=== PATIENT | female | born 1970 | race Caucasian/White ===

== ENCOUNTER 2020-06-25 13:06 | Observation (INO) | payer SELFPAY ==
--- NOTE | 2020-06-25 14:19 | RAD REPORT ---
EXAM DESCRIPTION: RAD - Chest Single View - 06/25/2020 2:11 pm CLINICAL HISTORY: COUGH Chest pain. COMPARISON: No comparisons FINDINGS: Portable technique limits examination quality. Moderate opacity in the right lower lobe medial right upper lobe is most compatible with pneumonia. T he left lung appears clear. The heart is normal in size. No displaced fractures. IMPRESSION: Moderate right-sided pneumonia.
[2020-06-25] MEDS ORDERED: ONDANSETRON 4 MG/2 ML VIAL ONE ×2 (14:24→15:44)
[2020-06-25] MEDS ORDERED: NA CHLORIDE 0.9% 1,000 ML ONE ×2 (14:25→15:44)
[2020-06-25] MEDS ORDERED: FAMOTIDINE 20 MG/2 ML VIAL IV ONE (14:25)
[2020-06-25] MEDS ORDERED: KETOROLAC 30 MG/ML INJ ONE (14:25)
[2020-06-25 15:06] LABS: Absolute Lymphocytes (CBC) 0.8 K/uL (0.7-4.9); Basophils % 0.3 % (0-1.3); Hematocrit 37.4 % (36.0-45.0); Lymphocytes % 15.8 % (15.3-44.8); MPV 9.8 fL (7.6-11.3); RBC Red Blood Cell Count 4.37 M/uL (3.86-4.86)
[2020-06-25] MEDS ORDERED: CEFTRIAXONE/SWI 1gm 1 GM/10 ML SYR ONE (15:18)
[2020-06-25 15:23] LABS: ALT/SGPT 70 U/L (12-78); AST/SGOT 65 U/L (15-37); Albumin 2.7 g/dL (3.4-5.0); Alkaline Phosphatase 59 U/L (45-117); BUN Blood Urea Nitrogen 14 mg/dL (7-18); Bicarbonate 27 mmol/L (21-32); Bilirubin Direct < 0.1 mg/dL (0-0.2); Bilirubin Total 0.2 mg/dL (0.2-1.0); Glucose Level 96 mg/dL (74-106); Lipase 187 U/L (73-393); Potassium 3.9 mmol/L (3.5-5.1); Sodium Level 142 mmol/L (136-145)
[2020-06-25 15:24] LABS: Blood Morphology Comment NOT SEEN (NOT SEEN); Platelet Estimate DECR; White Blood Cell Scan OK (OK)
[2020-06-25 15:56] LABS: SARS-COV-2 RT PCR POSITIVE (NEGATIVE)
[2020-06-25] MEDS ORDERED: AZITHROMYCIN IV 500 MG in NA CHLORIDE 0.9% 250 ML IVPB ONE (16:00)
[2020-06-25] MEDS ORDERED: PROMETHAZINE INJ 25 MG/ML AMP ONE (16:49)
--- NOTE | 2020-06-25 18:31 | EDPHYS ---
Physician Documentation [facility] Name: Aleida Smalls Age: 49 yrs Sex: Female : 1970 Arrival Date: 06/25/2020 Time: 13:09 Bed 26 Private MD: ED Physician Guillaume Saleem HPI: 06/25 13:45 This 49 yrs old Female presents to ER via Wheelchair with complaints of cp Fever, Weakness, Body Aches. 13:45 The patient reports fever, that was measured at 102 degrees Fahrenheit. Onset: The cp symptoms/episode began/occurred 4 day(s) ago. Associated signs and symptoms: Pertinent positives: cough, diarrhea, vomiting, body aches. Severity of symptoms: in the emergency department the symptoms are unchanged despite home interventions. reports he was diagnosed with COVID-19 approximately 2 weeks ago. Patient tested negative twice previously. Historical: - Allergies: 13:21 No Known Allergies; sv - PMHx: 13:21 None; sv - Immunization history:: Adult Immunizations up to date. - Social history:: Smoking status: Patient reports the use of cigarette tobacco products, smokes one pack cigarettes per day. ROS: 13:47 Eyes: Negative for injury, pain, redness, and discharge. cp 13:47 Constitutional: Positive for body aches, poor PO intake, Negative for fever. 13:47 ENT: Negative for ear pain, sore throat, difficulty swallowing, difficulty handling secretions. 13:47 Cardiovascular: Negative for chest pain. 13:47 Respiratory: Positive for cough, "sounds productive", Negative for shortness of breath, wheezing. 13:47 Abdomen/GI: Positive for nausea, vomiting, and diarrhea, Negative for abdominal pain, constipation. 13:47 Back: Positive for pain at rest. 13:47 Neuro: Positive for headache, Negative for altered mental status. 13:47 All other systems are negative. Exam: 13:49 Head/Face: Normocephalic, atraumatic. cp 13:49 Constitutional: The patient appears in no acute distress, alert, awake, non-diaphoretic, non-toxic, well developed, well nourished. 13:49 Eyes: Periorbital structures: appear normal, Conjunctiva: normal, no exudate, no injection, Sclera: no appreciated abnormality, Lids and lashes: appear normal, bilaterally. 13:49 ENT: External ear(s): are unremarkable, Nose: is normal, Mouth: Lips: moist, Oral mucosa: moist, Posterior pharynx: Airway: no evidence of obstruction, patent. 13:49 Neck: ROM/movement: is normal, is supple, no meningismus, no nuchal rigidity. 13:49 Chest/axilla: Inspection: normal, Palpation: is normal, no crepitus, no tenderness. 13:49 Cardiovascular: Rate: normal, Rhythm: regular. 13:49 Respiratory: the patient does not display signs of respiratory distress, Respirations: normal, no use of accessory muscles, no retractions, labored breathing, is not present, Breath sounds: are clear throughout, no decreased breath sounds, no stridor, no wheezing. 13:49 Abdomen/GI: Inspection: abdomen appears normal, Bowel sounds: active, all quadrants, Palpation: abdomen is soft and non-tender, in all quadrants. 13:49 Back: ROM is normal, CVA tenderness, is absent. 13:49 Skin: no rash present. 13:49 Neuro: Orientation: to person, place \\T\\ time. Mentation: is normal, Motor: moves all fours, strength is normal. Vital Signs: 13:21 BP 91 / 52; Pulse 75; Resp 18; Temp 98.5(O); Pulse Ox 99% ; Weight 90.72 kg; Height 5 sv ft. 7 in. (170.18 cm); Pain 6/10; 15:15 Temp 99.6(O); ll1 15:22 BP 98 / 53; Pulse 69; Resp 17; Pulse Ox 99% on R/A; ll1 17:05 BP 101 / 59; Pulse 65; Resp 18; Temp 99.1; Pulse Ox 99% on R/A; ll1 19:45 BP 129 / 71; Pulse 82; Resp 18; Temp 102.6(O); Pulse Ox 97% on R/A; wh 13:21 Body Mass Index 31.32 (90.72 kg, 170.18 cm) sv MDM: 13:31 Patient medically screened. epi 14:00 Differential diagnosis: bronchitis, pneumonia UTI, meningitis, sepsis. cp 16:20 Data reviewed: vital signs, nurses notes, lab test result(s), radiologic studies, plain cp films. 18:10 ED course: VSS. Patient continues to reports continued nausea and vomiting when cp attempting to consume fluids. Patient and concerned about return of fever, general weakness getting worse if discharged. Will consult hospitalist services for admission for continued nausea/vomiting. 18:25 Physician consultation: Ga RIDDLE was contacted at 18:25, regarding admission, cp patient's condition. 06/25 13:43 Order name: Influenza Screen (a \\T\\ B) 06/25 13:43 Order name: COVID-19 : Document "Date of Symptom Onset" if Symptomatic. 06/25 13:43 Order name: Urine Microscopic Only 06/25 13:43 Order name: Basic Metabolic Panel; Complete Time: 15:24 06/25 15:49 Interpretation: Normal except: CL 111; CRE 0.52; CA 7.3. 06/25 13:43 Order name: CBC with Diff; Complete Time: 15:49 06/25 15:24 Interpretation: Normal except: PLT 94; VITALIY% 79.7. 06/25 13:43 Order name: Hepatic Function; Complete Time: 15:24 06/25 16:10 Interpretation: Normal except: AST 65; TP 6.0; ALB 2.7; A/G 0.8. 06/25 13:43 Order name: Lipase; Complete Time: 15:24 06/25 13:43 Order name: Lactate; Complete Time: 15:24 06/25 13:43 Order name: Procalcitonin; Complete Time: 16:03 06/25 13:43 Order name: Blood Culture* 06/25 13:43 Order name: Urine Microscopic Only EDGA 06/25 15:25 Order name: CBC Smear Scan; Complete Time: 15:49 EDGA 06/25 15:56 Order name: COVID-19/FLU A+B; Complete Time: 16:03 EDGA 06/25 16:03 Interpretation: Abnormal: SARSCOV2 RT PCR POSITIVE. 06/25 18:07 Order name: CRP; Complete Time: 21:55 cp 06/25 18:07 Order name: Ferritin; Complete Time: 21:55 cp 06/25 19:23 Order name: PT-INR; Complete Time: 21:55 cp 06/25 19:23 Order name: Ptt, Activated; Complete Time: 21:55 cp 06/26 04:15 Order name: Urinalysis EDMS 06/26 05:09 Order name: CBC with Automated Diff EDMS 06/26 05:23 Order name: Comprehensive Metabolic Panel EDMS 06/26 05:23 Order name: Phosphorus EDMS 06/26 05:23 Order name: Magnesium EDMS 06/27 04:55 Order name: CBC with Automated Diff EDMS 06/27 05:06 Order name: Lactate EDMS 06/27 07:04 Order name: Comprehensive Metabolic Panel EDMS 06/27 07:04 Order name: Phosphorus EDMS 06/27 07:04 Order name: C-Reactive Protein EDMS 06/27 07:04 Order name: Magnesium EDMS 06/25 13:43 Order name: Urine Dipstick-Ancillary (obtain specimen); Complete Time: 03:25 cp 06/25 13:43 Order name: Urine Test (obtain specimen); Complete Time: 03:25 cp 06/25 13:43 Order name: IV Saline Lock; Complete Time: 14:27 cp 06/25 13:43 Order name: Labs collected and sent; Complete Time: 14:27 cp 06/25 14:08 Order name: Chest Single View; Complete Time: 14:45 EDMS 06/25 14:45 Interpretation: Report reviewed. cp 06/25 14:25 Order name: Labs - recollect needed: recollect purple and green tops; Complete Time: eb 14:47 06/25 16:11 Order name: PO challenge; Complete Time: 16:57 cp 06/25 20:48 Order name: CT Chest, Abdomen, Pelvis - W/Contrast ej 06/27 07:04 Order name: Ferritin EDMS 06/27 08:18 Order name: RAD EDMS Administered Medications: 14:25 Drug: Zofran (Ondansetron) 4 mg Route: IVP; Site: right antecubital; ll1 15:05 Follow up: Response: No adverse reaction; RASS: Alert and Calm (0) ll1 14:25 Drug: NS 0.9% 1000 ml Route: IV; Rate: 1 bolus; Site: right antecubital; ll1 15:06 Follow up: Response: No adverse reaction; RASS: Alert and Calm (0); IV Status: ll1 Completed infusion; IV Intake: 1000ml 14:26 Drug: Pepcid (famotidine) 20 mg Route: IVP; Site: right antecubital; 1 15:06 Follow up: Response: No adverse reaction; RASS: Alert and Calm (0) 1 14:26 Drug: Ketorolac 15 mg Route: IVP; Site: right antecubital; 1 15:05 Follow up: Response: No adverse reaction; RASS: Alert and Calm (0) 1 15:04 Drug: Rocephin (cefTRIAXone) 1 grams Route: IV; Rate: calculated rate; Site: right ll1 antecubital; 15:06 Follow up: Response: No adverse reaction; RASS: Alert and Calm (0); IV Status: ll1 Completed infusion; IV Intake: 10ml 15:25 Drug: Zithromax (azithromycin) 500 mg Route: IVPB; Infused Over: 1 hrs; Site: right ll1 antecubital; 16:25 Follow up: Response: No adverse reaction; IV Status: Completed infusion; IV Intake: ll1 250ml 15:30 Drug: Zofran (Ondansetron) 4 mg Route: IVP; Site: right antecubital; 1 19:00 Follow up: Response: No adverse reaction; RASS: Alert and Calm (0) 1 15:31 Drug: NS 0.9% 1000 ml Route: IV; Rate: 1 bolus; Site: right antecubital; 1 16:30 Follow up: Response: No adverse reaction; RASS: Alert and Calm (0); IV Status: ll1 Completed infusion; IV Intake: 1000ml 16:57 Drug: Phenergan (promethazine) 25 mg Route: IVP; Site: right antecubital; 1 18:59 Follow up: Response: No adverse reaction; RASS: Alert and Calm (0) 1 20:05 Drug: Tylenol 650 mg Route: PO; wh 22:17 Follow up: Response: Temperature is decreased 06/26 00:08 Drug: Tylenol 650 mg Route: PO; 03:24 Follow up: Response: No adverse reaction; Temperature is decreased Disposition: 06/28 09:56 Co-signature as Attending Physician, Guillaume Saleem MD I agree with the assessment and epi plan of care. Disposition: 06/25/20 18:31 Hospitalization ordered by Tony Portillo for Observation. Preliminary diagnosis are Nausea and vomiting - intractable, Pneumonia due to other infectious organisms, not elsewhere classified. - Bed requested for [facility] ER HOLD. - Status is Observation. ss - Condition is Stable. - Problem is new. - Symptoms have improved. Signatures: Dispatcher [employer] EDGA Sarai Pedroza, RN Moriah Mcneal RN Guillaume Cabral MD MD cha Smirch, Shelby, RN RN ss Page, Corey, PA PA cp Raheem Pike RN RN wh Botello, Elizabeth eb Lewis, Lynsay, RN RN ll1 Corrections: (The following items were deleted from the chart) 06/25 14: 13:44 Chest Pa And Lat (2 Views)+RAD.RAD.BRZ ordered. EDMS EDMS 14:08 14:01 Chest Single View+RAD.RAD.BRZ ordered. EDMS EDMS 14:53 13:43 Influenza Screen (A ordered. EDMS EDMS 14:54 13:43 CORONAVIRUS ordered. EDMS EDMS 15:49 15:24 Normal except: CL 111; CRE 0.52. cp cp 20:11 18:31 Hospitalization Ordered by Tony Portillo MD for Observation. Preliminary dw diagnosis is Nausea and vomiting - intractable; Pneumonia due to other infectious organisms, not elsewhere classified. Bed requested for Telemetry/MedSurg (observation). Status is Observation. Condition is Stable. Problem is new. Symptoms have improved. cp 06/27 11:15 06/25 20:11 06/25/2020 18:31 Hospitalization Ordered by Tony Portillo MD for ss Observation. Preliminary diagnosis is Nausea and vomiting - intractable; Pneumonia due to other infectious organisms, not elsewhere classified. Bed requested for [facility] ER HOLD. Status is Observation. Condition is Stable. Problem is new. Symptoms have improved. dw
--- NOTE | 2020-06-25 18:31 | ER ---
Nurse's Notes [facility] Name: Aleida Smalls Age: 49 yrs Sex: Female : 1970 Arrival Date: 06/25/2020 Time: 13:09 Bed 26 Private MD: Diagnosis: Nausea and vomiting-intractable;Pneumonia due to other infectious organisms, not elsewhere classified Presentation: 06/25 13:19 Chief complaint: Patient states: fever, body aches, headache, n/v, lightheaded, sv generalized weakness, diarrhea since Sunday. Coronavirus screen: Client denies travel out of the [place] in the last 14 days. Client presents with at least one sign or symptom that may indicate coronavirus-19. Standard/surgical mask placed on the client. Provider contacted for isolation considerations. Ebola Screen: No symptoms or risks identified at this time. Risk Assessment: Do you want to hurt yourself or someone else? Patient reports no desire to harm self or others. Onset of symptoms was June 20, 2020. 13:19 Method Of Arrival: Wheelchair sv 13:19 Acuity: PIETER 2 sv 13:22 Initial Sepsis Screen: Does the patient meet any 2 criteria? No. Patient's initial sv sepsis screen is negative. Does the patient have a suspected source of infection? No. Patient's initial sepsis screen is negative. Historical: - Allergies: 13:21 No Known Allergies; sv - PMHx: 13:21 None; sv - Immunization history:: Adult Immunizations up to date. - Social history:: Smoking status: Patient reports the use of cigarette tobacco products, smokes one pack cigarettes per day. Screenin:09 Abuse screen: Denies threats or abuse. Nutritional screening: No deficits noted. ll1 Tuberculosis screening: No symptoms or risk factors identified. 19:03 Fall Risk IV access (20 points). Gait- Weak (10 pts.). Total Zamora Fall Scale indicates ll1 Low Risk Score (25-44 pts). Assessment: 13:35 General: Appears ill, Behavior is calm, cooperative, appropriate for age. Pain: ll1 Complains of pain in body Quality of pain is described as aching, Aggravated by increased activity. Neuro: Level of Consciousness is awake, alert, Oriented to person, place, time, situation, Appropriate for age Team Leader Surgery are equal bilaterally Moves all extremities. Full function Gait is steady, Speech is normal, Facial symmetry appears normal, Reports headache weakness. Cardiovascular: No deficits noted. Respiratory: Reports cough that is Airway is patent Trachea midline Respiratory effort is even, unlabored, Respiratory pattern is regular, symmetrical, Breath sounds are clear in left upper lobe and left lower lobe Breath sounds are diminished in right middle lobe and right lower lobe the patient has mild shortness of breath. GI: Abdomen is round Bowel sounds present X 4 quads. Abd is soft and non tender X 4 quads. Reports diarrhea, nausea, vomiting. Musculoskeletal: Circulation, motion, and sensation intact. Capillary refill < 3 seconds, Range of motion: intact in all extremities, Reports pain in body aches. 14:30 Reassessment: Patient and/or family updated on plan of care and expected duration. Pain ll1 level reassessed. Patient is alert, oriented x 3, equal unlabored respirations, skin warm/dry/pink. vomited once. 15:30 Reassessment: No changes from previously documented assessment. Patient and/or family ll1 updated on plan of care and expected duration. Pain level reassessed. 16:30 Reassessment: No changes from previously documented assessment. Patient and/or family ll1 updated on plan of care and expected duration. Pain level reassessed. Patient states feeling better. 17:30 Reassessment: No changes from previously documented assessment. Patient and/or family ll1 updated on plan of care and expected duration. Pain level reassessed. Patient states symptoms have not improved. 18:30 Reassessment: No changes from previously documented assessment. Patient and/or family ll1 updated on plan of care and expected duration. Pain level reassessed. 19:30 Reassessment: Patient appears in no apparent distress at this time. Patient and/or wh family updated on plan of care and expected duration. Pain level reassessed. Patient is alert, oriented x 3, equal unlabored respirations, skin warm/dry/pink. Vital Signs: 13:21 BP 91 / 52; Pulse 75; Resp 18; Temp 98.5(O); Pulse Ox 99% ; Weight 90.72 kg; Height 5 sv ft. 7 in. (170.18 cm); Pain 6/10; 15:15 Temp 99.6(O); ll1 15:22 BP 98 / 53; Pulse 69; Resp 17; Pulse Ox 99% on R/A; ll1 17:05 BP 101 / 59; Pulse 65; Resp 18; Temp 99.1; Pulse Ox 99% on R/A; ll1 19:45 BP 129 / 71; Pulse 82; Resp 18; Temp 102.6(O); Pulse Ox 97% on R/A; wh 13:21 Body Mass Index 31.32 (90.72 kg, 170.18 cm) sv ED Course: 13:09 Patient arrived in ED. ds1 13:19 Arm band placed on. sv 13:20 Triage completed. sv 13:24 Guillaume Sharif PA is PHCP. cp 13:24 Guillaume Saleem MD is Attending Physician. cp 13:29 Selma Garcia RN is Primary Nurse. ll1 13:30 Patient placed in an exam room, on a stretcher. ll1 14:12 Chest Single View In Process Unspecified. EDMS 14:27 COVID-19 : Document "Date of Symptom Onset" if Symptomatic. Sent. ll1 15:10 Patient has correct armband on for positive identification. Bed in low position. Call ll1 light in reach. Side rails up X 1. 18:30 Tony Portillo MD is Hospitalizing Provider. cp 19:15 Primary Nurse role handed off by Selma Garcia RN eb 20:17 No provider procedures requiring assistance completed. Patient admitted, IV remains in place. 21:44 CT Chest, Abdomen, Pelvis - W/Contrast In Process Unspecified. EDMS 22:16 Raheem Pike, SARBJIT is Primary Nurse. Administered Medications: 14:25 Drug: Zofran (Ondansetron) 4 mg Route: IVP; Site: right antecubital; ll1 15:05 Follow up: Response: No adverse reaction; RASS: Alert and Calm (0) ll1 14:25 Drug: NS 0.9% 1000 ml Route: IV; Rate: 1 bolus; Site: right antecubital; ll1 15:06 Follow up: Response: No adverse reaction; RASS: Alert and Calm (0); IV Status: ll1 Completed infusion; IV Intake: 1000ml 14:26 Drug: Pepcid (famotidine) 20 mg Route: IVP; Site: right antecubital; ll1 15:06 Follow up: Response: No adverse reaction; RASS: Alert and Calm (0) ll1 14:26 Drug: Ketorolac 15 mg Route: IVP; Site: right antecubital; ll1 15:05 Follow up: Response: No adverse reaction; RASS: Alert and Calm (0) ll1 15:04 Drug: Rocephin (cefTRIAXone) 1 grams Route: IV; Rate: calculated rate; Site: right ll1 antecubital; 15:06 Follow up: Response: No adverse reaction; RASS: Alert and Calm (0); IV Status: ll1 Completed infusion; IV Intake: 10ml 15:25 Drug: Zithromax (azithromycin) 500 mg Route: IVPB; Infused Over: 1 hrs; Site: right ll1 antecubital; 16:25 Follow up: Response: No adverse reaction; IV Status: Completed infusion; IV Intake: ll1 250ml 15:30 Drug: Zofran (Ondansetron) 4 mg Route: IVP; Site: right antecubital; 1 19:00 Follow up: Response: No adverse reaction; RASS: Alert and Calm (0) [facility] 15:31 Drug: NS 0.9% 1000 ml Route: IV; Rate: 1 bolus; Site: right antecubital; ll1 16:30 Follow up: Response: No adverse reaction; RASS: Alert and Calm (0); IV Status: ll1 Completed infusion; IV Intake: 1000ml 16:57 Drug: Phenergan (promethazine) 25 mg Route: IVP; Site: right antecubital; 1 18:59 Follow up: Response: No adverse reaction; RASS: Alert and Calm (0) 1 20:05 Drug: Tylenol 650 mg Route: PO; 22:17 Follow up: Response: Temperature is decreased 06/26 00:08 Drug: Tylenol 650 mg Route: PO; 03:24 Follow up: Response: No adverse reaction; Temperature is decreased Intake: 06/25 15:06 IV: 1000ml; Total: 1000ml. ll1 15:06 IV: 10ml; Total: 1010ml. ll1 16:25 IV: 250ml; Total: 1260ml. ll1 16:30 IV: 1000ml; Total: 2260ml. 1 Outcome: 18:31 Decision to Hospitalize by Provider. cp 20:17 Admitted to ER Hold. Please see [employer] for further documentation. 20:17 Condition: stable 20:17 Instructed on the need for admit. 06/27 11:15 Patient left the ED. Signatures: Dispatcher [employer] Sarai Lira, RN SARBJIT Yaritza Piña ds1 Annette Gooden RN RN ss Guillaume Sharif PA PA cp Habalo, Winsy, RN RN Clarita Newman Lynsay RN RN ll1 Corrections: (The following items were deleted from the chart) 06/25 13:22 13:19 Acuity: PIETER 3 [facility]
[2020-06-25 20:02] LABS: C-Reactive Protein 52.9 mg/L (<3.00); Ferritin 701.3 ng/mL (8-388)
[2020-06-25 20:06] LABS: Protime INR 1.1
[2020-06-25] MEDS ORDERED: ACETAMINOPHEN 325 MG TABLET ONE (20:18)
[2020-06-26] MEDS ORDERED: ACETAMINOPHEN 325 MG TABLET ONE (00:25)
--- NOTE | 2020-06-26 01:21 | P.HP ---
Certification for Inpatient Patient admitted to: Observation With expected LOS: <2 Midnights Patient will require the following post-hospital care: None Practitioner: I am a practitioner with admitting privileges, knowledge of patient current condition, hospital course, and medical plan of care. Services: Services provided to patient in accordance with Admission requirements found in Title 42 Section 412.3 of the Code of Federal Regulations Patient History Date of Service: 06/26/20 Reason for admission: pneumonia History of Present Illness: Ms. Smalls is a 49 yo F with tobacco use disorder (1ppd) here today for six days of malaise. She reports weakness, fatigue, cough, fever to 102.6, nausea, vomiting, diarrhea, and headache. She is unable to keep food down. She denies SOB, RUIZ, wheezing, hemoptysis, hematuria, bleeding in her gums. She is not hypoxic. At home she has been taking steroids, covid supplements, tylenol and motrin. Plt 94, AST 65. CXR shows moderate right-sided pneumonia. - Past Medical/Surgical History Has patient received pneumonia vaccine in the past: No Diabetic: No Past Medical History: Patient denies medical history -: hysterectomy -: tubal ligation Psychosocial/ Personal History: - Family History Father -: Diabetes Mother -: Diabetes - Social History Smoking Status: Current every day smoker Counseled patient to stop smoking for: less than 10 minutes Smoking therapy provided: Yes Patient receptive to therapy: No Alcohol use: Yes CD- Drugs: No Caffeine use: Yes Place of Residence: Home Review of Systems General: Fever, Chills, Sweats, Weakness, Malaise, As per HPI Eyes: Unremarkable ENT: Unremarkable Respiratory: Cough, As per HPI Cardiovascular: Unremarkable Gastrointestinal: Nausea, Vomiting, Diarrhea, As per HPI Genitourinary: Unremarkable Musculoskeletal: Unremarkable Integumentary: Unremarkable Neurological: Unremarkable Lymphatics: Unremarkable Physical Examination - Physical Exam General: Alert, In no apparent distress, Oriented x3, Cooperative HEENT: Atraumatic, Normocephalic, PERRLA, Mucous membr. moist/pink, EOMI, Sclerae nonicteric Neck: Supple, 2+ carotid pulse no bruit, JVD not distended, No Thyromegaly, No LAD Respiratory: Normal air movement, Rhonchi/gurgles Cardiovascular: No edema, Normal pulses, Regular rate/rhythm, Normal S1 S2, No gallops, No rubs, No murmurs Capillary refill: <2 Seconds Gastrointestinal: Normal bowel sounds, Soft and benign, Non-distended, No ascites, No tenderness, No masses, No rebound, No guarding Musculoskeletal: No clubbing, No swelling, No contractures, No erythema, No tenderness, No warmth Integumentary: No rashes, No breakdown, No significant lesion, No tenderness/swelling, No erythema, No warmth, No cyanosis Neurological: Normal speech, Normal strength at 5/5 x4 extr, Normal tone, Sensation intact, Cranial nerves 3-12 intact, Normal affect Lymphatics: No axilla or inguinal lymphadenopathy - Studies Laboratory Data (last 24 hrs) 06/25/20 19:33: PT 12.7 H, INR 1.10, APTT 31.1 06/25/20 14:52: WBC 4.90, Hgb 12.4, Hct 37.4, Plt Count 94 L* 06/25/20 14:52: Sodium 142, Potassium 3.9, BUN 14, Creatinine 0.52 L, Glucose 96, Total Bilirubin 0.2, AST 65 H, ALT 70, Alkaline Phosphatase 59, Lipase 187 Assessment and Plan - Problems (Diagnosis) (1) Tobacco use Current Visit: Yes Status: Chronic (2) SARS-CoV-2 positive Current Visit: Yes Status: Acute (3) Pneumonia Current Visit: Yes Status: Acute Qualifiers: Pneumonia type: due to unspecified organism Laterality: right Lung location: unspecified part of lung Qualified Code(s): J18.9 - Pneumonia, unspecified organism (4) Thrombocytopenia Current Visit: Yes Status: Acute (5) Nausea vomiting and diarrhea Current Visit: Yes Status: Acute - Plan continue with IVF antiemetics for nausea, pain medication as needed, tylenol for fever SCDs for DVT ppx, continue to monitor platelet count, avoid NSAIDs patient is not hypoxic, continue to monitor R lobe consolidation not consistent with COVID, patient's has been recently COVID+ will continue IV ceftriaxone and azithromycin, IV steroids, covid supplements Discharge Plan: Home Plan to discharge in: 24 Hours - Advance Directives Does patient have a Living Will: No Does patient have a Durable POA for Healthcare: No - Code Status/Comfort Care Code Status Assessed: Yes (full code ) Critical Care: No Time Spent Managing Pts Care (In Minutes): 70
[2020-06-26 01:39] VITALS: BMI 31.3
[2020-06-26] MEDS ORDERED: BENZONATATE 100 MG CAP PO PRN (01:40)
[2020-06-26] MEDS: NA CHLORIDE 0.9% 1,000 ML IV SCH ×3 (01:40→18:55)
[2020-06-26] MEDS ORDERED: MORPHINE 2 MG/ML SYR IV PRN (01:40)
[2020-06-26] MEDS ORDERED: NA CHLORIDE 0.9% 1,000 ML ONE ×2 (04:01→14:47)
[2020-06-26 04:08] LABS: Urine Appearance CLEAR (Clear); Urine Bilirubin NEGATIVE (Negataive); Urine Blood NEGATIVE (Negative); Urine Color YELLOW (Yellow); Urine Glucose NEGATIVE (Negative); Urine Protein NEGATIVE (Negative); Urine Specific Gravity >=1.030 (1.005-1.030); Urine Urobilinogen 0.2 mg/dL (0.2-1.0)
[2020-06-26 04:14] LABS: Urine Microscopic Reflex NO UMIC
[2020-06-26 05:02] LABS: Absolute Lymphocytes (CBC) 1.4 K/uL (0.7-4.9); Basophils % 0.3 % (0-1.3); Hematocrit 36.2 % (36.0-45.0); Lymphocytes % 24.7 % (15.3-44.8); MPV 9.8 fL (7.6-11.3); RBC Red Blood Cell Count 4.24 M/uL (3.86-4.86)
[2020-06-26 05:22] LABS: ALT/SGPT 92 U/L (12-78); AST/SGOT 91 U/L (15-37); Albumin 2.5 g/dL (3.4-5.0); Alkaline Phosphatase 54 U/L (45-117); BUN Blood Urea Nitrogen 7 mg/dL (7-18); Bicarbonate 25 mmol/L (21-32); Bilirubin Total 0.2 mg/dL (0.2-1.0); Glucose Level 104 mg/dL (74-106); Magnesium 1.7 mg/dL (1.8-2.4); Phosphorus 1.8 mg/dL (2.5-4.9); Potassium 3.6 mmol/L (3.5-5.1); Protein, Total 5.7 g/dL (6.4-8.2); Sodium Level 140 mmol/L (136-145)
[2020-06-26] MEDS: ONDANSETRON 4 MG/2 ML VIAL IV PRN ×2 (05:28→13:51)
[2020-06-26] MEDS ORDERED: MAGNESIUM SULFATE 1 gm IVPB 1 GM/100 ML BAG IV ONE ×2 (05:31→06:02)
[2020-06-26] MEDS ORDERED: ONDANSETRON 4 MG/2 ML VIAL ONE ×2 (05:37→14:08)
[2020-06-26] MEDS ORDERED: METOCLOPRAMIDE 10 MG/2mL INJ ONE ×2 (07:36→14:42)
[2020-06-26] MEDS: METOCLOPRAMIDE 10 MG/2mL INJ IV PRN ×2 (07:43→14:23)
[2020-06-26] MEDS ORDERED: POTASSIUM CL SA 10 MEQ TAB PO ONE ×2 (09:00→10:25)
[2020-06-26] MEDS: NICOTINE 14 MG/PAT TD SCH ×2 (09:00→10:08)
[2020-06-26] MEDS: VITAMIN D 1000 UNIT TAB PO SCH (10:07)
[2020-06-26] MEDS: ASCORBIC ACID 500 MG TABLET PO SCH ×4 (10:07→20:20)
[2020-06-26] MEDS: ZINC SULFATE 220 MG CAP PO SCH (10:07)
[2020-06-26] MEDS: METHYLPREDNISOLONE 125 MG INJ IV SCH ×2 (10:07→20:20)
[2020-06-26] MEDS: THIAMINE HCL 100 MG TABLET PO SCH (10:08)
[2020-06-26] MEDS ORDERED: ZINC SULFATE 220 MG CAP ONE (10:24)
[2020-06-26] MEDS ORDERED: METHYLPREDNISOLONE 125 MG INJ ONE (10:24)
[2020-06-26] MEDS ORDERED: THIAMINE HCL 100 MG TABLET ONE (10:25)
[2020-06-26] MEDS ORDERED: ASCORBIC ACID 500 MG TABLET ONE ×4 (10:25→20:02)
[2020-06-26] MEDS ORDERED: VITAMIN D 1000 UNIT TAB ONE (10:25)
[2020-06-26] MEDS: ACETAMINOPHEN 500 MG TAB PO PRN ×3 (12:02→23:25)
[2020-06-26] MEDS ORDERED: ACETAMINOPHEN 500 MG TAB ONE ×3 (12:19→23:43)
[2020-06-26] MEDS ORDERED: LOPERAMIDE HCL 2 MG CAPSULE PO STA (13:41)
[2020-06-26] MEDS ORDERED: LOPERAMIDE HCL 2 MG CAPSULE ONE ×2 (14:09→17:43)
--- NOTE | 2020-06-26 14:55 | RAD REPORT ---
EXAM DESCRIPTION: Chest Abdomen Pelvis W Cont RadLex: CT CHEST ABDOMEN PELVIS WITH IV CONTRAST CLINICAL HISTORY: Intractable vomiting. COMPARISON: None. TECHNIQUE: CT of the chest, abdomen, and pelvis was performed following intravenous administration o f iodinated contrast. Oral contrast was not administered. Axial, coronal, and sagittal reconstruction s were created and sent to PACS. This exam was performed according to our departmental dose-optimization program, which includes autom ated exposure control, adjustment of the mA and/or kV according to patient size and/or use of iterati ve reconstruction technique. FINDINGS: Lungs and pleura: Large regions of consolidation in the central aspect of the right upper lobe and right middle lobe, and peripheral aspect of the right lower lobe. Smaller consolidations in the right upper lobe and lateral lingula. No pleural effusion. No pneumothorax. Mediastinum and neck: No mediastinal lymphadenopathy identified by CT size criteria. Unremarkable janay earance of the thyroid gland. Cardiac: No cardiomegaly or pericardial effusion. No thoracic aortic aneurysm or dissection. Hepatobiliary: No concerning hepatic lesion identified. Mild hepatomegaly, measuring 19.9 cm in lengt h. Tiny faint hypodensity in the superior left hepatic lobe, possibly a cyst. The hepatic and portal veins are patent. The gallbladder is unremarkable. No biliary ductal dilatation. Pancreas: Unremarkable. Spleen: Unremarkable. Gastrointestinal: No evidence of bowel obstruction or perienteric inflammation. The appendix is karthikeyan l. Moderate left colonic diverticulosis. Small amount of material in the colon. Adrenals: No abnormality identified in either adrenal gland. Renal: No concerning parenchymal abnormality in either kidney. No hydronephrosis or urolithiasis. Bladder/Reproductive: Poor evaluation of the underdistended urinary bladder. Hysterectomy. Vascular/Lymphatics: No lymphadenopathy identified by CT size criteria. Abdominal aorta is normal in caliber. Musculoskeletal: No concerning osseous lesion identified. Fluid / peritoneum: No significant free fluid. No free intraperitoneal air identified. IMPRESSION 1. Multifocal large regions of pulmonary consolidation, concerning for multifocal pneum onia. 2. No acute abnormality in the abdomen or pelvis. 3. Mild hepatomegaly. 4. Moderate left colonic diverticulosis. Electronically signed by: Erica Aleman MD 06/25/2020 9:56 PM CDT Due to temporary technical issues with the PACS/Fluency reporting system, reports are being signed by the in house radiologists without review as a courtesy to insure prompt reporting. The interpreting radiologist is fully responsible for the content of the report.
[2020-06-26] MEDS ORDERED: CEFTRIAXONE/SWI 1gm 1 GM/10 ML SYR IV SCH (16:00)
[2020-06-26] MEDS ORDERED: CEFTRIAXONE 1 GM/NS 50 ML 1 GM/50 ML BAG IV SCH (16:00)
[2020-06-26] MEDS ORDERED: CEFTRIAXONE/SWI 1gm 1 GM/10 ML SYR ONE (16:06)
[2020-06-26] MEDS: AZITHROMYCIN IV 500 MG in NA CHLORIDE 0.9% 250 ML IVPB SCH (16:13)
[2020-06-26] MEDS: LOPERAMIDE HCL 2 MG CAPSULE PO PRN (17:23)
[2020-06-26] MEDS ORDERED: METHYLPREDNISOLONE 40 MG INJ ONE (20:02)
[2020-06-26 20:31] VITALS: O2SAT 95
[2020-06-27] MEDS: NA CHLORIDE 0.9% 1,000 ML IV SCH (01:05)
[2020-06-27] MEDS ORDERED: NA CHLORIDE 0.9% 1,000 ML ONE (01:24)
[2020-06-27 04:36] LABS: Absolute Lymphocytes (CBC) 1.1 K/uL (0.7-4.9); Basophils % 0.5 % (0-1.3); Hematocrit 37.1 % (36.0-45.0); Lymphocytes % 35.3 % (15.3-44.8); MPV 9.8 fL (7.6-11.3); RBC Red Blood Cell Count 4.32 M/uL (3.86-4.86)
[2020-06-27 06:56] LABS: ALT/SGPT 115 U/L (12-78); AST/SGOT 103 U/L (15-37); Albumin 2.6 g/dL (3.4-5.0); Alkaline Phosphatase 56 U/L (45-117); BUN Blood Urea Nitrogen 8 mg/dL (7-18); Bicarbonate 26 mmol/L (21-32); Bilirubin Total 0.1 mg/dL (0.2-1.0); Ferritin 1355.3 ng/mL (8-388); Glucose Level 159 mg/dL (74-106); Magnesium 2.3 mg/dL (1.8-2.4); Phosphorus 2.3 mg/dL (2.5-4.9); Potassium 3.9 mmol/L (3.5-5.1); Protein, Total 6.3 g/dL (6.4-8.2); Sodium Level 143 mmol/L (136-145)
[2020-06-27] MEDS: NICOTINE 14 MG/PAT TD SCH (07:56)
[2020-06-27] MEDS ORDERED: ZINC SULFATE 220 MG CAP ONE (08:04)
[2020-06-27] MEDS ORDERED: ASCORBIC ACID 500 MG TABLET ONE (08:04)
[2020-06-27] MEDS ORDERED: VITAMIN D 1000 UNIT TAB ONE (08:04)
[2020-06-27] MEDS ORDERED: THIAMINE HCL 100 MG TABLET ONE (08:05)
[2020-06-27 08:13] VITALS: BP 121/67; TEMP 98.9
--- NOTE | 2020-06-27 08:17 | RAD REPORT ---
EXAM DESCRIPTION: Jacklyn Single View06/27/2020 7:04 am CLINICAL HISTORY: Pneumonia COMPARISON: June 25, 2020 FINDINGS: Mild worsening in right lung areas of consolidation. The left lung appears clear. Heart is normal size IMPRESSION: Mild worsening in the moderate right pneumonia
[2020-06-27] MEDS: ZINC SULFATE 220 MG CAP PO SCH (08:27)
[2020-06-27] MEDS: ASCORBIC ACID 500 MG TABLET PO SCH (08:27)
[2020-06-27] MEDS: VITAMIN D 1000 UNIT TAB PO SCH (08:27)
[2020-06-27] MEDS: THIAMINE HCL 100 MG TABLET PO SCH (08:27)
[2020-06-27] MEDS: AZITHROMYCIN IV 500 MG in NA CHLORIDE 0.9% 250 ML IVPB SCH (08:55)
[2020-06-27] MEDS ORDERED: METHYLPREDNISOLONE 40 MG INJ IV SCH (09:00)
[2020-06-27] MEDS ORDERED: METHYLPREDNISOLONE 40 MG INJ ONE (09:11)
[2020-06-27] MEDS ORDERED: BENZONATATE 100 MG CAP PO ONE (09:44)
--- NOTE | 2020-06-27 10:39 | P.DS ---
Discharge Date: 06/27/20 Disposition: ROUTINE DISCHARGE Discharge Condition: GOOD Reason for Admission: pneumonia Brief History of Present Illness: Patient is a 49-year-old female who came to the hospital with persistent nausea, vomiting, and diarrhea. Patient was found have COVID-19 pneumonia. However, patient was not hypoxic but was having a lot of gastroenterology symptoms. Patient was admitted for further evaluation. Hospital Course: Patient done well during hospital stay. At this time, patient is stable for discharge with outpatient follow-up with Pulmonary as needed. Vital Signs/Physical Exam: Temp Pulse Resp BP Pulse Ox 98.9 F 82 18 121/67 95 06/27/20 08:00 06/27/20 08:00 06/27/20 08:00 06/27/20 08:00 06/27/20 08:00 General: Alert, In no apparent distress, Oriented x3 Laboratory Data at Discharge: WBC Cancelled 06/27/20 06:00 Hgb Cancelled 06/27/20 06:00 Hct Cancelled 06/27/20 06:00 Plt Count Cancelled 06/27/20 06:00 PT 12.7 SECONDS (9.5-12.5) H 06/25/20 19:33 INR 1.10 06/25/20 19:33 APTT 31.1 SECONDS (24.3-36.9) 06/25/20 19:33 Sodium Cancelled 06/27/20 06:00 Potassium Cancelled 06/27/20 06:00 BUN Cancelled 06/27/20 06:00 Creatinine Cancelled 06/27/20 06:00 Glucose Cancelled 06/27/20 06:00 Phosphorus Cancelled 06/27/20 06:00 Magnesium Cancelled 06/27/20 06:00 Total Bilirubin Cancelled 06/27/20 06:00 AST Cancelled 06/27/20 06:00 ALT Cancelled 06/27/20 06:00 Alkaline Phosphatase Cancelled 06/27/20 06:00 Lipase 187 U/L (73-393) 06/25/20 14:52 Home Medications: Azithromycin [Zithromax] 250 mg PO ZPAK #1 roslyn 06/27/20 RX: Albuterol Inhaler [Ventolin Inhaler*] 2 puff IH Q6H PRN #1 hfa.aer.ad 06/27/20 RX: Ascorbic Acid [Vitamin C*] 500 mg PO QID #60 tablet 06/27/20 RX: Benzonatate [Tessalon Perle*] 100 mg PO TID PRN #30 cap 06/27/20 RX: Cholecalciferol (Vitamin D3) [Vitamin D 1000 Iu Tab*] 4,000 unit PO DAILY #30 tab 06/27/20 RX: Thiamine HCl [Vitamin B-1*] 200 mg PO DAILY #20 tablet 06/27/20 RX: Zinc Sulfate [Zinc Sulfate*] 220 mg PO DAILY #20 cap 06/27/20 predniSONE [Deltasone] 20 mg PO BID #15 tab 06/27/20 New Medications: predniSONE [Deltasone] 20 mg PO BID #15 tab RX: Benzonatate [Tessalon Perle*] 100 mg PO TID PRN #30 cap PRN Reason: Cough RX: Albuterol Inhaler [Ventolin Inhaler*] 2 puff IH Q6H PRN #1 hfa.aer.ad PRN Reason: Shortness Of Breath RX: Thiamine HCl [Vitamin B-1*] 200 mg PO DAILY #20 tablet RX: Ascorbic Acid [Vitamin C*] 500 mg PO QID #60 tablet RX: Cholecalciferol (Vitamin D3) [Vitamin D 1000 Iu Tab*] 4,000 unit PO DAILY #30 tab RX: Zinc Sulfate [Zinc Sulfate*] 220 mg PO DAILY #20 cap Azithromycin [Zithromax] 250 mg PO ZPAK #1 roslyn Physician Discharge Instructions: OK TO DC IV AND DC HOME Prescriptions were sent to [facility] pharmacy FOLLOW-UP WITH PRIMARY CARE PROVIDER IN 1-2 WEEKS FOLLOW-UP WITH Pulmonary as needed RETURN TO THE ER IF symptoms worsen CALL or TEXT DR. WHALEN AT [phone] IF ANY QUESTIONS REGARDING HOSPITAL STAY. PLEASE CALL THE FLOOR AT [phone] IF ANY MEDICATION OR NURSING QUESTIONS. Diet: AHA Activity: Fall precautions Followup: OOT,OOT [Primary Care Provider] - Time spent managing pt's care (in minutes): 35
[2020-06-27] MEDS: LOPERAMIDE HCL 2 MG CAPSULE PO PRN (10:40)
[2020-06-27] MEDS ORDERED: LOPERAMIDE HCL 2 MG CAPSULE ONE (10:59)
== END 2020-06-27 11:15 | disposition home or self-care (01) ==
LOC: ER 13:06 → ERHOLD 06-26 00:59
PROVIDERS: ADMIT Hospitalist; ATTEND Hospitalist
DX: U07.1 COVID-19 (principal); J12.82 Pneumonia due to coronavirus disease 2019; F17.210 Nicotine dependence, cigarettes, uncomplicated; D69.6 Thrombocytopenia, unspecified; R11.2 Nausea with vomiting, unspecified; R19.7 Diarrhea, unspecified
CPT/HCPCS: 0240U; 36415; 71045; 71260; 74177; 80048; 80053; 80076; 81003; 82728; 83605; 83690; 83735; 84100; 84145; 85025; 85610; 85730; 86140; 87040; 94760; 96361; 96365; 96375; 99285; G0378; J0456; J0696; J2405; J2550; J2765; J2920; J2930; J3475; J7030; J7050; Q9967